=== PATIENT | female | born 1945 | race Asian ===

== ENCOUNTER 2018-01-26 15:13 | Outpatient (CLI) | payer OTHER ==
--- NOTE | 2018-01-26 16:48 | MMO ---
BILATERAL SCREENING MAMMOGRAM: 01/26/18 HISTORY: Screening. COMPARISON: Mammogram 2015. TECHNIQUE: Followup screening CC and MLO mammograms with computer aided detection. FINDINGS: Bilateral benign calcifications. Scattered fibroglandular densities. Left breast nodule is similar. There is an ovoid asymmetry on the right breast superior one half only seen on the MLO view. This is more conspicuous than the prior examinations. IMPRESSION: BIRADS 0: Incomplete: Need Additional Imaging Evaluation and/or Prior Mammograms for Comparison. The re is asymmetry right breast superior one half middle depth seen only on the MLO view. Spot compressi on and ultrasound as deemed necessary are recommended. POS: [facility]
== END 2018-01-26 15:14 | disposition home or self-care (01) ==
LOC: SCSMAMMO 15:13
PROVIDERS: ATTEND Internal Medicine
DX: Z12.31 Encounter for screening mammogram for malignant neoplasm of breast (principal)
CPT/HCPCS: 77067

== ENCOUNTER 2018-02-04 09:24 | Outpatient (CLI) | payer OTHER | END 2018-02-04 09:25 | disposition home or self-care (01) | LOC: BICMAMMO 09:24 | PROVIDERS: ATTEND Internal Medicine | DX: Z12.31 Encounter for screening mammogram for malignant neoplasm of breast (principal) | CPT/HCPCS: 77063; 77067 ==

== ENCOUNTER 2019-05-24 14:32 | Outpatient (CLI) | payer OTHER ==
--- NOTE | 2019-05-24 15:40 | BD ---
Exam: DEXA Bone Density 05/24/19 HISTORY: Postmenopausal screening for osteoporosis. Lumbar Spine: BMD (g/cm2) T-SCORE Z-SCORE L1 0.790 -1.8 0.2 L2 0.831 -1.8 0.4 L3 0.792 -2.7 -0.3 L4 0.812 -2.3 0.2 L1-L4 0.806 -2.2 0.1 Femoral Neck: 0.600 -2.2 -0.3 Total Femur: 0.809 -1.1 0.6 There has been interval reduction of 1.2% of the BMD of the lumbar spine and reduction of 1.4% of the BMD of the proximal femur since 09/24/15. The ten year fracture risk for major osteoporotic fracture is 8% and for hip fracture is 2%. Impression: Osteopenia. POS: OFF
--- NOTE | 2019-05-24 16:39 | MMO ---
Bilateral MAMMO Bilat Screen [facility]. CLINICAL HISTORY: Patient is 73 years old and is seen for screening. The patient has no family history of breast cancer. The patient has no personal history of cancer. VIEWS: The views performed were: bilateral craniocaudal with tomosynthesis and bilateral mediolateral oblique with tomosynthesis. FILMS COMPARED: The present examination has been compared to a prior imaging study performed at [facility] on 02/04/2018. This study has been interpreted with the assistance of computer-aided detection. MAMMOGRAM FINDINGS: There are scattered fibroglandular densities. There are no suspicious masses, suspicious calcifications, or new areas of architectural distortion. IMPRESSION: THERE IS NO MAMMOGRAPHIC EVIDENCE OF MALIGNANCY. A ROUTINE FOLLOW-UP MAMMOGRAM IN 1 YEAR IS RECOMMENDED. THE RESULTS OF THIS EXAM WERE SENT TO THE PATIENT. ACR BI-RADS Category 1 - Negative MAMMOGRAPHY NOTE: 1. A negative mammogram report should not delay a biopsy if a dominant of clinically suspicious mass is present. 2. Approximately 10% to 15% of breast cancers are not detected by mammography. 3. Adenosis and dense breasts may obscure an underlying neoplasm. Reported by: KIRIT OG MD Electonically Signed: [id number]
== END 2019-05-24 14:33 | disposition home or self-care (01) ==
LOC: BICMAMMO 14:32
PROVIDERS: ATTEND Internal Medicine
DX: Z12.31 Encounter for screening mammogram for malignant neoplasm of breast (principal); Z78.0 Asymptomatic menopausal state
CPT/HCPCS: 77063; 77067; 77080

== ENCOUNTER 2020-12-18 15:27 | Outpatient (CLI) | payer OTHER | END 2020-12-18 15:28 | disposition home or self-care (01) | LOC: BICMAMMO 15:27 | PROVIDERS: ATTEND Internal Medicine | DX: Z12.31 Encounter for screening mammogram for malignant neoplasm of breast (principal) | CPT/HCPCS: 77063; 77067 ==